=== PATIENT | female | born 1980 | race Caucasian/White ===

== ENCOUNTER 2016-08-15 13:31 | Emergency (ER) | payer MEDICAID, OTHER ==
[~2016-08-15] VITALS: Ht 165.1 cm; Wt 80.0 kg
[~2016-08-15 13:31] MED LIST: NUVAMIS PV; PREN1CAP20 PO
[2016-08-15 13:33] VITALS: BP 129/71; PULSE 110; RESP 14; TEMP 98.2; O2SAT 99
--- NOTE | 2016-08-15 15:11 | PD ---
HPI Chief Complaint: GI Complaint Time Seen by Provider: 15:11 Travel History International Travel<30 days: No Contact w/Intl Traveler<30days: No Traveled to known affect area: No History of Present Illness HPI 36-year-old female who states she is 8 weeks gestation presents to emergency department for evaluation nausea vomiting. Patient states that she has been unable to keep any food down. She states she has had a couple bouts of diarrhea. No hematemesis. No [place] red or tarry stools. Patient denies any chest tightness. No difficulty breathing. She does not have an [employer] yet as she just cannot she was . Denies abdominal pain or cramping. No vaginal bleeding or discharge. Urinary output has been decreased which she attributes to not being able to keep anything down. Patient has subjective fever and chills. She has no other symptoms to report. FOR[facility]LY [facility] Past Medical History Medical History: Denies Significant Hx Diminished Hearing: No Genitourinary: Yes (KIDNEY INFECTIONS FROM CHILDHOOD) Immunizations Current: Yes Migraines: Yes : 2 Para: 1 Miscarriage: 0 : 1 Past Surgical History Other Surgery: Yes (MULITPLE SCALP CYSTS REMOVED) Social History Alcohol Use: No Tobacco Use: Yes (3-4 cigarettes every other day) Substance Use: No Allergies-Medications (Allergen,Severity, Reaction): Coded Allergies: No Known Allergies (Verified , 07/10/16) Reported Meds & Prescriptions Reported Meds & Active Scripts Active Tamiflu (Oseltamivir Phosphate) 75 Mg Cap 75 Mg PO BID 5 Days Review of Systems Except as stated in HPI: all other systems reviewed are Neg Physical Exam Narrative GENERAL: Well-nourished female patient, in no acute distress SKIN: Warm and dry. HEAD: Atraumatic. Normocephalic. EYES: Pupils equal and round. No scleral icterus. No injection or drainage. ENT: No nasal bleeding or discharge. Mucous membranes pink and moist. NECK: Trachea midline. No JVD. CARDIOVASCULAR: Tachycardic rate and rhythm. No murmur appreciated. RESPIRATORY: No accessory muscle use. Diminished due to poor inspiratory effort , to auscultation. Breath sounds equal bilaterally. GASTROINTESTINAL: Abdomen soft, non-tender, nondistended. Hepatic and splenic margins not palpable. MUSCULOSKELETAL: No obvious deformities. No clubbing. No cyanosis. No edema. NEUROLOGICAL: Awake and alert. No obvious cranial nerve deficits. Motor grossly within normal limits. Normal speech. Data Data Last Documented VS Vital Signs Date Time Temp Pulse Resp B/P Pulse Ox O2 Delivery O2 Flow Rate FiO2 08/15/16 13:33 98.2 110 14 129/71 99 Room Air Orders Urinalysis - C+S If Indicated (08/15/16 15:08) Ed Urine Pregnancytest Poc (08/15/16 15:08) Ondansetron Odt (Zofran Odt) (08/15/16 15:15) Iv Access Insert/Monitor (08/15/16 15:10) Sodium Chlor 0.9% 1000 Ml Inj (Ns 1000 M (08/15/16 15:15) Ondansetron Inj (Zofran Inj) (08/15/16 15:15) Influenzae A/B Antigen (08/15/16 15:10) Acetaminophen (Tylenol) (08/15/16 16:45) Labs Laboratory Tests Test 08/15/16 15:25 Urine Color YELLOW Urine Turbidity HAZY Urine pH 6.0 Urine Specific Bath 1.024 Urine Protein TRACE mg/dL Urine Glucose (UA) NEG mg/dL Urine Ketones NEG mg/dL Urine Occult Blood NEG Urine Nitrite NEG Urine Bilirubin NEG Urine Urobilinogen LESS THAN 2.0 MG/DL Urine Leukocyte Esterase SMALL Urine RBC 1 /hpf Urine WBC 4 /hpf Urine Squamous Epithelial 12 /hpf Cells Urine Mucus MOD /lpf Microscopic Urinalysis Comment CULT NOT INDICATED MDM Medical Decision Making Medical Screen Exam Complete: Yes Emergency Medical Condition: Yes Medical Record Reviewed: Yes Differential Diagnosis Nausea and vomiting with versus hyperemesis versus gastroenteritis versus influenza Narrative Course 36-year-old female presents to emergency department for evaluation. Patient appears without distress. She has tachycardic. She reports nausea, vomiting, diarrhea. Patient is given IV fluids and Zofran. Influenza screen is positive for influenza A. I discussed the patient my attending physician Dr. Byrd. She recommends [facility] the [facility] and I have explained the patient is important that she seeks care and follow-up with her primary care provider. She agrees to return immediately with any acute worsening of symptoms. Diagnosis Primary Impression: Influenza A Additional Impressions: Qualified Code: Z3A.08 - 8 weeks gestation of Nausea & vomiting Qualified Code: R11.2 - Nausea and vomiting, intractability of vomiting not specified, unspecified vomiting type Referrals: Primary Care Physician Patient Instructions: General Instructions, Influenza (DC), (ED) Additional Instructions: Rest Maintain adequate oral hydration Follow-up with her primary care provider Return immediately to the emergency department with any acute worsening of symptoms Med/Other Pt SpecificInfo: Prescription(s) given Scripts Oseltamivir (Tamiflu)75 Mg Cap75 Mg PO BID 5 Days Ref 0 Prov:Diana Delacruz 08/15/16 Disposition: 01 DISCHARGE HOME Condition: Stable Diana Delacruz Aug 15, 2016 15:11
[2016-08-15] MEDS ORDERED: SODIUM CHLOR 0.9% 1000 ML INJ 1,000 ML IV ONE (15:15)
[2016-08-15] MEDS ORDERED: ONDANSETRON ODT 4 MG TAB PO ONE (15:15)
[2016-08-15] MEDS ORDERED: ONDANSETRON HCL 4 MG/2 ML VIAL IV PUSH ONE (15:15)
[2016-08-15 16:10] LABS: BLOOD, URINE NEG (NEG); COMMENT (UR) CULT NOT INDICATED; CULTURE IF INDICATED CULT NOT INDICATED; GLUCOSE,URINE NEG (NEG); KETONE, URINE NEG (NEG); MUCUS URINE MOD /lpf (OCC); NITRITE,URINE NEG (NEG); SQUAMOUS EPITHELIAL CELL URINE 12 /hpf (0-5); URINE COLOR YELLOW (YELLW/STRAW)
[2016-08-15] MEDS ORDERED: OSEL75 PO (16:36)
[2016-08-15] MEDS ORDERED: ACETAMINOPHEN 500 MG CPLT PO ONE (16:45)
== END 2016-08-15 17:05 | disposition home or self-care (01) ==
LOC: NETRI 13:31
DX: O26.891 Other specified pregnancy related conditions, first trimester (principal); J09.X2 Influenza due to identified novel influenza A virus with other respiratory manifestations; R11.2 Nausea with vomiting, unspecified; Z72.0 Tobacco use; Z3A.08 8 weeks gestation of pregnancy
CPT/HCPCS: 81001; 84703; 87804; 96361; 96374; 99284; J2405; J7030

== ENCOUNTER 2017-01-10 14:01 | Emergency (ER) | payer MEDICAID, OTHER ==
[~2017-01-10] VITALS: Ht 165.1 cm; Wt 87.2 kg
[~2017-01-10 14:01] MED LIST changes: -NUVAMIS PV; +OSEL75 PO; -PREN1CAP20 PO
[2017-01-10 14:10] VITALS: BP 131/74; PULSE 88; RESP 16; TEMP 98.4; O2SAT 97
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
[2017-01-10] MEDS ORDERED: MORPHINE SULFATE 4 MG/ML INJ IV PUSH ONE (14:45)
[2017-01-10] MEDS ORDERED: ONDANSETRON HCL 4 MG/2 ML VIAL IV PUSH ONE (14:45)
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
[2017-01-10] MEDS ORDERED: IBUPROFEN 600 MG TAB PO ONE (15:45)
== END 2017-01-10 16:13 | disposition home or self-care (01) ==
LOC: PHED 14:01
DX: S06.0X1A Concussion with loss of consciousness of 30 minutes or less, initial encounter (principal); S00.12XA Contusion of left eyelid and periocular area, initial encounter; S00.11XA Contusion of right eyelid and periocular area, initial encounter; H53.8 Other visual disturbances; R51 Headache; F17.210 Nicotine dependence, cigarettes, uncomplicated; W21.11XA Struck by baseball bat, initial encounter; Y93.64 Activity, baseball; Y92.9 Unspecified place or not applicable; Y99.8 Other external cause status
CPT/HCPCS: 70450; 70486; 84703; 99284

== ENCOUNTER 2017-03-15 17:08 | Emergency (ER) | payer MEDICAID ==
[~2017-03-15] VITALS: Ht 165.1 cm; Wt 91.1 kg
[2017-03-15 17:14] VITALS: BP 140/99; PULSE 92; RESP 16; TEMP 98.5; O2SAT 98
[2017-03-15 18:47] LABS: BLOOD, URINE NEG (NEG); GLUCOSE,URINE NEG (NEG); KETONE, URINE NEG (NEG); NITRITE,URINE NEG (NEG)
[2017-03-15 19:05] LABS: MUCUS URINE FEW /lpf (OCC); URINE COLOR YELLOW (YELLW/STRAW)
[2017-03-15 19:06] LABS: COMMENT (UR) CULT NOT INDICATED; CULTURE IF INDICATED CULT NOT INDICATED; RBC, URINE 0-3 /hpf (0-3); SQUAMOUS EPITHELIAL CELL URINE 0-5 /hpf (0-5); WBC, URINE 0-2 /hpf (0-5)
[2017-03-15] MEDS ORDERED: TYLE325T PO (19:23)
[2017-03-15] MEDS ORDERED: SODIUM CHLOR 0.9% 1000 ML INJ 1,000 ML IV ONE (19:30)
[2017-03-15] MEDS ORDERED: KETOROLAC TROMETHAMINE 30 MG/ML (IVP) VIAL IV PUSH ONE (19:30)
[2017-03-15] MEDS ORDERED: ONDANSETRON HCL 4 MG/2 ML VIAL IV PUSH ONE (19:30)
--- NOTE | 2017-03-15 19:31 | PD ---
HPI Chief Complaint: Abdominal Pain Time Seen by Provider: 19:09 Travel History International Travel<30 days: No Contact w/Intl Traveler<30days: No Traveled to known affect area: No History of Present Illness HPI This 36-year-old female says she's been feeling nauseated. She had a Depo shot about 5 months ago and she has not really felt very well since then. She's been feeling as though she is though she had a negative test. She estimates that she has vomited many times over the last couple of days. She has some crampy abdominal pain. She is 3 para 2 had one miscarriage. She has no history of surgery. She's been having intermittent headaches. She says she feels hungry but when she eats something she vomits. PFSH Past Medical History Hx Anticoagulant Therapy: No Diminished Hearing: No Genitourinary: Yes (KIDNEY INFECTIONS FROM CHILDHOOD) Immunizations Current: Yes Migraines: Yes ?: Not LMP: states 5months ago , was on depo last dose 2months ago : 2 Para: 1 Miscarriage: 0 : 1 Past Surgical History Other Surgery: Yes (MULITPLE SCALP CYSTS REMOVED) Social History Alcohol Use: No Tobacco Use: Yes (3-4 cigarettes every other day) Substance Use: No Allergies-Medications (Allergen,Severity, Reaction): Coded Allergies: No Known Allergies (Verified , 03/15/17) Reported Meds & Prescriptions Reported Meds & Active Scripts Active Reported Tylenol (Acetaminophen) 325 Mg Tab 650 Mg PO Q4H PRN Review of Systems General / Constitutional: No: Fever, Chills Eyes: No: Diploplia, Blurred Vision HENT: No: Headaches, Vertigo Cardiovascular: No: Chest Pain or Discomfort, Palpitations Respiratory: No: Cough, Shortness of Breath Gastrointestinal: No: Nausea, Vomiting Physical Exam Narrative GENERAL: Well-developed female SKIN: Focused skin assessment warm/dry. HEAD: Atraumatic. Normocephalic. EYES: Pupils equal and round. No scleral icterus. No injection or drainage. ENT: No nasal bleeding or discharge. Mucous membranes pink and moist. NECK: Trachea midline. No JVD. CARDIOVASCULAR: Regular rate and rhythm. No murmur appreciated. RESPIRATORY: No accessory muscle use. Clear to auscultation. Breath sounds equal bilaterally. GASTROINTESTINAL: Abdomen soft, non-tender, nondistended. Hepatic and splenic margins not palpable. MUSCULOSKELETAL: No obvious deformities. No clubbing. No cyanosis. No edema. NEUROLOGICAL: Awake and alert. No obvious cranial nerve deficits. Motor grossly within normal limits. Normal speech. PSYCHIATRIC: Appropriate mood and affect; insight and judgment normal. Data Data Last Documented VS Vital Signs Date Time Temp Pulse Resp B/P Pulse Ox O2 Delivery O2 Flow Rate FiO2 03/15/17 17:14 98.5 92 16 140/99 98 Orders Urinalysis - C+S If Indicated (03/15/17 17:45) Ed Urine Pregnancytest Poc (03/15/17 17:45) Complete Blood Count With Diff (03/15/17 19:17) Comprehensive Metabolic Panel (03/15/17 19:17) Beta Hcg (Quant/Titer) (03/15/17 19:17) Sodium Chlor 0.9% 1000 Ml Inj (Ns 1000 M (03/15/17 19:30) Ondansetron Inj (Zofran Inj) (03/15/17 19:30) Ketorolac Inj (Toradol Inj) (03/15/17 19:30) Labs Laboratory Tests Test 03/15/17 03/15/17 18:30 19:34 Urine Color YELLOW Urine Turbidity CLEAR Urine pH 6.0 Urine Specific Martin 1.030 Urine Protein NEG mg/dL Urine Glucose (UA) NEG mg/dL Urine Ketones NEG mg/dL Urine Occult Blood NEG Urine Nitrite NEG Urine Bilirubin NEG Urine Leukocyte Esterase NEG Urine RBC 0-3 /hpf Urine WBC 0-2 /hpf Urine Squamous Epithelial 0-5 /hpf Cells Urine Mucus FEW /lpf Microscopic Urinalysis Comment CULT NOT INDICATED White Blood Count 7.7 TH/MM3 Red Blood Count 4.64 MIL/MM3 Hemoglobin 13.8 GM/DL Hematocrit 40.6 % Mean Corpuscular Volume 87.5 FL Mean Corpuscular Hemoglobin 29.6 PG Mean Corpuscular Hemoglobin 33.9 % Concent Red Cell Distribution Width 11.5 % Platelet Count 422 TH/MM3 Mean Platelet Volume 7.0 FL Neutrophils (%) (Auto) 55.3 % Lymphocytes (%) (Auto) 32.4 % Monocytes (%) (Auto) 8.2 % Eosinophils (%) (Auto) 3.3 % Basophils (%) (Auto) 0.8 % Neutrophils # (Auto) 4.2 TH/MM3 Lymphocytes # (Auto) 2.5 TH/MM3 Monocytes # (Auto) 0.6 TH/MM3 Eosinophils # (Auto) 0.3 TH/MM3 Basophils # (Auto) 0.1 TH/MM3 CBC Comment DIFF FINAL Differential Comment Sodium Level 137 MEQ/L Potassium Level 3.9 MEQ/L Chloride Level 104 MEQ/L Carbon Dioxide Level 28.3 MEQ/L Anion Gap 5 MEQ/L Blood Urea Nitrogen 21 MG/DL Creatinine 0.86 MG/DL Estimat Glomerular Filtration 74 ML/MIN Rate Random Glucose 83 MG/DL Calcium Level 9.2 MG/DL Total Bilirubin 0.1 MG/DL Aspartate Amino Transf 22 U/L (AST/SGOT) Alanine Aminotransferase 52 U/L (ALT/SGPT) Alkaline Phosphatase 76 U/L Total Protein 7.6 GM/DL Albumin 3.7 GM/DL Human Chorionic Gonadotropin, LESS THAN 1 Quant MIU/ML MDM Medical Decision Making Medical Screen Exam Complete: Yes Emergency Medical Condition: Yes Medical Record Reviewed: Yes Differential Diagnosis Differential includes , hepatitis, adverse medication reaction Narrative Course Lab work is unremarkable. Patient does feel better after Zofran. I will prescribe some Zofran to use at home. I suspect her symptoms may be related to her Depakote shot but I cannot be sure. She is to follow-up with her own medical doctor Diagnosis Primary Impression: Adverse drug reaction Qualified Code: T88.7XXA - Adverse effect of drug, initial encounter Scripts Ondansetron Odt (Zofran Odt)4 Mg Tab4 Mg SL Q12HR PRN (Nausea/Vomiting) #30 TAB Ref 0 Prov:Ihsan Nettles MD 03/15/17 Disposition: DISCHARGE HOME Condition: Stable Ihsan Nettles MD Mar 15, 2017 19:30
[2017-03-15 19:44] LABS: AUTOMATED NEUTROPHIL # 4.2 TH/MM3 (1.8-7.7); BASOPHIL # 0.1 TH/MM3 (0-0.2); BASOPHIL % 0.8 % (0.0-2.0); EOSINOPHIL # 0.3 TH/MM3 (0-0.4); EOSINOPHIL % 3.3 % (0.0-4.0); HEMATOCRIT 40.6 % (35.0-46.0); HEMO FLAGS DIFF FINAL; LYMPH % 32.4 % (9.0-44.0); LYMPHOCYTE # 2.5 TH/MM3 (1.0-4.8); MEAN CELL VOLUME 87.5 FL (80.0-100.0); MEAN CORPUSCULAR HEMOGLOBIN 29.6 PG (27.0-34.0); MEAN CORPUSCULAR HGB CONC 33.9 % (32.0-36.0); MONO % 8.2 % (0.0-8.0); NEUT % 55.3 % (16.0-70.0); PLATELET COUNT 422 TH/MM3 (150-450); RED BLOOD COUNT 4.64 MIL/MM3 (4.00-5.30); RED CELL DISTRIBUTION WIDTH 11.5 % (11.6-17.2); WHITE BLOOD COUNT 7.7 TH/MM3 (4.0-11.0)
[2017-03-15 19:54] LABS: CHLORIDE 104 MEQ/L (98-107); POTASSIUM 3.9 MEQ/L (3.5-5.1); SODIUM (NA) 137 MEQ/L (136-145)
[2017-03-15 19:57] LABS: ANION GAP 5 MEQ/L (5-15); BICARBONATE 28.3 MEQ/L (21.0-32.0); BLOOD UREA NITROGEN 21 MG/DL (7-18)
[2017-03-15 20:00] LABS: ALT (GPT) 52 U/L (10-53); AST (GOT) 22 U/L (15-37)
[2017-03-15 20:01] LABS: GLOMERULAR FILTRATION RATE 74 ML/MIN (>89)
[2017-03-15 20:02] LABS: TOTAL BILIRUBIN ADULT 0.1 MG/DL (0.2-1.0)
[2017-03-15 20:03] LABS: ALKALINE PHOSPHATASE 76 U/L (45-117)
[2017-03-15 20:05] LABS: BETA HCG QUANT LESS THAN 1 MIU/ML (0-5)
[2017-03-15 20:15] VITALS: BP 119/82; PULSE 69; RESP 18; O2SAT 100
[2017-03-15] MEDS ORDERED: ZOFR4TAB3 SL (21:14)
[2017-03-15 21:20] VITALS: BP 139/88; PULSE 85; RESP 17; TEMP 98.4; O2SAT 98
== END 2017-03-15 21:36 | disposition home or self-care (01) ==
LOC: PHED 17:08
DX: R10.9 Unspecified abdominal pain (principal); R51 Headache; R11.2 Nausea with vomiting, unspecified; F17.210 Nicotine dependence, cigarettes, uncomplicated
CPT/HCPCS: 80053; 81001; 84702; 84703; 85025; 96361; 96374; 96375; 99284; J1885; J2405; J7030